=== PATIENT | female | born 1970 | race Caucasian/White ===

== ENCOUNTER 2022-02-25 02:16 | Day surgery (SDC) | payer OTHER, SELFPAY ==
[2022-02-07 14:53] VITALS: BMI 17.4
[2022-02-25 11:48] VITALS: BP 110/66; PULSE 85; RESP 16; TEMP 36.8; O2SAT 99
[2022-02-25] MEDS: DEXTROSE 50% 25 GM/50 ML SYRINGE IV PUSH (12:07)
[2022-02-25] MEDS: LACTATED RINGERS 1,000 ML 150 ML IV CONT (12:08)
--- NOTE | 2022-02-25 12:10 | PM.HPGS ---
History of Present Illness History of Present Illness Consent: Risks, benefits, and alternatives have been discussed and questions answered. Patient agrees to proceed with procedure. Chief complaint: neoplasm screening, epigastric pain, vomiting Narrative: Althea Diaz is a 51 year old female with intermittent n/v, she has h/o DM and gastroparesis (diagnosed by [facility]), also smokes marijuana. Last EGD in 2017, never had colonoscopy Review of Systems Constitutional: Constitutional: Denies headache(s) and Denies weakness Eyes: Eyes: Denies blurry vision ENT: Reports Normal hearing present, Denies headache(s) and Denies neck pain Cardiovascular: Cardiovascular: Denies chest pain and Denies dyspnea Respiratory: Respiratory: Denies dyspnea Gastrointestinal: Gastrointestinal: Reports no additional gastrointestinal complaints Genitourinary: Genitourinary: Denies dysuria Musculoskeletal: Musculoskeletal: Denies neck pain Integumentary/Breasts: Skin/Breast: Denies dry skin Neurologic: Reports Normal hearing present, Denies headache(s) and Denies weakness Psychiatric: Psychiatric: Denies anxiety Endocrine: Endocrine: Denies change in body appearance Hematologic/Lymphatic: Hematologic/Lymphatic: Denies easy bleeding Allergic/Immunologic: Allergic/Immunologic: Denies urticaria PMFSH Past Medical History Medical History Colon cancer screening Diabetes Gastroparesis Nausea & vomiting Thyroid disorder Tobacco use Surgical History Surgical History (Updated 01/08/22 @ 12:56 by Maria Luz Armendariz MA) H/O knee surgery Family History Family History (Updated 11/27/17 @ 09:24 by DOCTOR UNKNOWN) Mother Family history of thyroid disease Diabetes mellitus Family history of malignant neoplasm Grandparent Diabetes mellitus Social History Social History Smoking packs per day: 1 Smoking cigarettes per day: 20.0 Years smoked: 35 Smoking pack-years: 35.00 Smoking status: Current every day smoker Second hand tobacco smoke exposure: Yes Alcohol intake: never Substance use: current Substance use type: marijuana Other substance usage details: daily Living arrangements: with family Spiritual care concerns: No Meds Home Medications and Allergies Home Medications Medication Instructions Recorded Confirmed Type insulin glargine 100 unit/mL 14 unit SUBCUT DAILY ml 01/08/22 02/25/22 History subcutaneous solution insulin lispro 100 unit/mL See Rx Instructions .ROUTE .COMPLEX 01/08/22 02/07/22 History subcutaneous solution levothyroxine [Euthyrox] 112 mcg PO DAILY 02/07/22 02/07/22 History lisinopril 2.5 mg PO DAILY 02/07/22 02/07/22 History Allergies Allergy/AdvReac Type Severity Reaction Status Date / Time No Known Allergies Allergy Verified 02/25/22 11:45 Vital Signs Vital Signs - 24 hr 02/25/22 11:48 Temperature 98.2 F Pulse Rate 85 Respiratory Rate 16 Blood Pressure 110/66 Pulse Oximetry 99 Exam Const: General: comfortable and no acute distress HENMT: General nose exam: Normal nares present Eyes: General: appearance normal, both eyes and all related structures Neck: Neck: no JVD Resp: Auscultation: clear to auscultation bilaterally Cardio: Rate: regular rate Rhythm: regular rhythm GI: Inspection: non-distended GI Palp: Yes Soft to palpation Skin: General skin exam: normal color Neuro: General: gait normal Speech: normal speech Extrem: General: normal to inspection Psych: Mental Status: mental status grossly normal Assessment and Plan Assessment and plan (1) Gastroparesis: Code(s): K31.84 - Gastroparesis Status: Acute (2) Nausea & vomiting: Code(s): R11.2 - Nausea with vomiting, unspecified Status: Acute Assessment and Plan: this could be from DM, gastroparesis and smoking marijuana will do egd with bx (3) Colon cancer screening: Code(s): Z12.11 - Encounter for scre
--- NOTE | 2022-02-25 12:15 | P.PNAN_ITS ---
Anes - Initial Pre Proc Eval Procedure: Operation Date: 02/25/22 13:00 Proposed Procedures p Esophagogastroduodenoscopy & Screening Colonoscopy - Kevin Sultana MD Date/Time: 02/25/22 12:15 Surgeon: Kevin Singh MD Pre Op Diagnosis: neoplasm screening, epigastric pain, vomiting Patient Data Age: 51 Gender: F Height: 1.73 m Weight: 51.2 kg Last Vital Signs Temp 98.2 F 02/25/22 11:48 Pulse 85 02/25/22 11:48 Resp 16 02/25/22 11:48 BP 110/66 02/25/22 11:48 Pulse Ox 99 02/25/22 11:48 Allergies Allergy/AdvReac Type Severity Reaction Status Date / Time No Known Allergies Allergy Verified 02/25/22 11:45 Home Medications Medication Instructions Recorded Confirmed Type insulin glargine 100 unit/mL 14 unit SUBCUT DAILY ml 01/08/22 02/25/22 History subcutaneous solution insulin lispro 100 unit/mL See Rx Instructions .ROUTE .COMPLEX 01/08/22 02/07/22 History subcutaneous solution levothyroxine [Euthyrox] 112 mcg PO DAILY 02/07/22 02/07/22 History lisinopril 2.5 mg PO DAILY 02/07/22 02/07/22 History Patient hx anesthesia problems: none Family hx anesthesia problems: none Results Review: All pre-operative results and documents have been reviewed as part of the pre-operative evaluation. PMFSH Past Medical History Medical History Colon cancer screening Diabetes Gastroparesis Nausea & vomiting Thyroid disorder Tobacco use Surgical History Surgical History (Updated 01/08/22 @ 12:56 by Maria Luz Armendariz MA) H/O knee surgery Family History Family History (Updated 11/27/17 @ 09:24 by DOCTOR UNKNOWN) Mother Family history of thyroid disease Diabetes mellitus Family history of malignant neoplasm Grandparent Diabetes mellitus Social History Social History Smoking packs per day: 1 Smoking cigarettes per day: 20.0 Years smoked: 35 Smoking pack-years: 35.00 Smoking status: Current every day smoker Second hand tobacco smoke exposure: Yes Alcohol intake: never Substance use: current Substance use type: marijuana Other substance usage details: daily Living arrangements: with family Spiritual care concerns: No Anes - Eval Final PreProcedure Day of Procedure 02/25/22 12:15 Patient weight: normal Heart: regular rate and rhythm Lungs: clear to auscultation Airway: Mallampati scale class II Neurological: alert and oriented Last oral intake: >/= 8 hours ASA classification: II Emergent: no Anesthetic plan: proceed Anesthesia type and monitoring: general GIVS and standard monitoring Results Review: All pre-operative results and documents have been reviewed as part of the pre-operative evaluation. Informed Consent: The patient's anesthetic plan and its attendant risks and benefits were discussed with the patient/family/POA. Questions were solicited and answers provided to the satisfaction of the patient/family/POA.
[2022-02-25 12:19] LABS: Glucose Point of Care 165 mg/dl (65-105)
[2022-02-25 12:19] LABS: Glucose Point of Care 46 mg/dl (65-105)
--- NOTE | 2022-02-25 12:28 | SUR.OPER ---
EGD ended at 1226. Colonoscopy began at 1230.
[2022-02-25 12:43] VITALS: BP 82/44; PULSE 63; RESP 16; O2SAT 100
[2022-02-25 12:53] VITALS: BP 101/59; PULSE 64; RESP 14; O2SAT 100
[2022-02-25 13:03] VITALS: BP 101/59; PULSE 74; RESP 16; O2SAT 96
== END 2022-02-25 13:14 | disposition home or self-care (01) ==
PROVIDERS: PCP Nurse Practitioner Family; Visit Provider Internal Medicine Gastroenterology
PROC: 0DJ08ZZ Inspection of Upper Intestinal Tract, Via Natural or Artificial Opening Endoscopic (ICD-10-PCS; CPT 43235; principal; 2022-02-25 13:00)
DX: Z12.11 Encounter for screening for malignant neoplasm of colon (principal); D12.0 Benign neoplasm of cecum; K29.50 Unspecified chronic gastritis without bleeding; E11.43 Type 2 diabetes mellitus with diabetic autonomic (poly)neuropathy; K31.84 Gastroparesis; F17.210 Nicotine dependence, cigarettes, uncomplicated
CPT/HCPCS: 45385; 43239; 82948; 88305; J2704; J7120

== ENCOUNTER 2024-05-04 11:25 | Emergency (ER) | payer OTHER, SELFPAY ==
[2024-05-04 11:32] VITALS: BP 161/80; PULSE 64; RESP 16; TEMP 36.4; O2SAT 100
[2024-05-04 11:48] LABS: EDUAAPPEAR Cloudy; EDUABILI Negative; EDUABLOOD 3+; EDUACOLOR1 Dark; EDUAGLUCOSE 2+; EDUAKETONE 3+; EDUALEUKO Trace; EDUANITRATE Positive; EDUAPROTEIN 2+; EDUAUROBILI 0.2
--- NOTE | 2024-05-04 12:06 | ED.GENADULT ---
HPI - General Adult General Chief complaint: Urogenital-Female Stated complaint: poss uti Source: patient Mode of arrival: ambulatory Limitations: no limitations History of Present Illness HPI narrative: Patient presents for evaluation of urinary symptoms for last few days. Symptoms include dysuria, urinary frequency, hesitancy, incomplete emptying, and hematuria. Today she developed some cramping in her lower abdomen. No fever chills, low back pain. She has experienced some nausea and vomiting. She is diabetic. She believes her last A1c was around 8. Related Data Home Medications Medication Instructions Recorded Confirmed insulin glargine 100 unit/mL 14 unit subcut DAILY 01/08/22 02/25/22 subcutaneous solution (Lantus U-100 Insulin) insulin lispro 100 unit/mL See Rx Instructions .Route .COMPLEX 01/08/22 02/07/22 subcutaneous solution (Admelog U-100 Insulin lispro) levothyroxine 112 mcg tablet 112 mcg PO DAILY 02/07/22 02/07/22 (Euthyrox) lisinopril 2.5 mg tablet 2.5 mg PO DAILY 02/07/22 02/07/22 Allergies Allergy/AdvReac Type Severity Reaction Status Date / Time No Known Allergies Allergy Verified 05/04/24 11:30 Review of Systems Review of Systems: CONSTITUTIONAL: Denies fever, chills, or sweats. EYES: Denies visual changes, redness, or discharge. ENT: Denies rhinorrhea, congestion, sore throat, or otalgia. CARDIOVASCULAR: Denies chest pain, palpitations, or edema. RESPIRATORY: Denies cough or dyspnea. GASTROINTESTINAL: Reports nausea, vomiting, abdominal pain GENITOURINARY: Reports urinary frequency, hesitancy, dysuria, hematuria SKIN: Denies rash or itching. MUSCULOSKELETAL: Denies back pain, joint pain, or myalgia. NEUROLOGIC: Denies headache, numbness, dizziness, or weakness. PSYCHIATRIC: Denies anxiety or depression. [facility] Past Medical History Medical History Colon cancer screening Diabetes Gastroparesis Nausea & vomiting Thyroid disorder Tobacco use Surgical History Surgical History H/O knee surgery Family History Family History Mother Family history of thyroid disease Diabetes mellitus Family history of malignant neoplasm Grandparent Diabetes mellitus Social History Social History Smoking packs per day: 1 Smoking cigarettes per day: 20.0 Years smoked: 35 Smoking pack-years: 35.00 Smoking status: Current every day smoker Second hand tobacco smoke exposure: Yes Alcohol intake: never Substance use: current Substance use type: marijuana Other substance usage details: daily Living arrangements: with family Spiritual care concerns: No Exam Narrative: GENERAL: Well-appearing, well-nourished, and in no acute distress. Holding emesis bag HEAD: Normocephalic, atraumatic. EYES: PERRLA and EOMI. ENT: Nares clear, no rhinorrhea or epistaxis. Mucous membranes moist. Oropharynx without tonsillar hypertrophy exudate or other lesions. Bilateral TMs pearly wall nonbulging NECK: Supple. No adenopathy or masses. No carotid bruits or JVD CHEST: Clear to auscultation. No respiratory distress. No wheezes rales or rhonchi HEART: Regular rate and rhythm. No murmur heard. Normal peripheral pulses. ABDOMEN: Soft, nontender, nondistended, normal active bowel sounds. BACK: No CVA tenderness EXTREMITIES: Normal range of motion. No edema. SKIN: Warm, dry, no rash. NEURO: No focal deficits. Alert and oriented x3. PSYCH: Normal mood and affect. Course Course Emergency Course: This is a 53-year-old female who presented for evaluation of urinary symptoms. She is nitrate positive urine, will treat with Bactrim, Pyridium, Zofran. She feels comfortable going home. She was instructed to go to the emergency department in the event that she has intractable pain, inabilit
== END 2024-05-04 12:02 | disposition home or self-care (01) ==
PROVIDERS: Emergency Provider Nurse Practitioner; PCP Nurse Practitioner Family
DX: N39.0 Urinary tract infection, site not specified (principal); B96.20 Unspecified Escherichia coli [E. coli] as the cause of diseases classified elsewhere; F17.210 Nicotine dependence, cigarettes, uncomplicated; E11.43 Type 2 diabetes mellitus with diabetic autonomic (poly)neuropathy; K31.84 Gastroparesis; Z79.4 Long term (current) use of insulin; E07.9 Disorder of thyroid, unspecified
CPT/HCPCS: 81003; 87077; 87086; 87186; 99213; G0463